=== PATIENT | female | born 1990 | race Caucasian/White ===

== ENCOUNTER 2025-02-06 06:45 | Day surgery (SDC) | payer MEDICAID ==
[~2025-02-06 06:45] MED LIST: SODIUM CHLORIDE 0.9% 1,000 ML ONE
[2025-02-06] MEDS ORDERED: FentaNYL CITRATE PF 100 MCG/2 ML VIAL ONE ×2 (07:30→07:31)
[2025-02-06] MEDS ORDERED: MIDAZOLAM HCL 2 MG/2 ML VIAL ONE (07:30)
[2025-02-06] MEDS: SODIUM CHLORIDE 0.9% 1,000 ML IV ONE (07:39)
[2025-02-06 09:45] VITALS: PULSE 73; RESP 18; O2SAT 99
[2025-02-06] MEDS: PROMETHAZINE HCL/DEXTROMETH 6.25-15MG/5ML SOLUTION ORAL.SYG PO ONE (11:04)
[2025-02-06] MEDS ORDERED: LIDOCAINE 2% 11 ML JELLY ONE (12:00)
[2025-02-06] MEDS ORDERED: LIDOCAINE 4% 50 ML SOLUTION ONE (12:00)
[2025-02-06] MEDS ORDERED: BENZOCAINE 20% 50 MCG/SPRAY 57 GM ONE (12:00)
[2025-02-06] MEDS ORDERED: ALBUTEROL SULFATE 2.5 MG/0.5 ML NEB SOLUTION NEB ONE (12:00)
== END 2025-02-06 12:45 | disposition home or self-care (01) ==
LOC: SURGERY 06:45
PROVIDERS: ATTEND Internal Medicine Critical Care Medicine
DX: J38.4 Edema of larynx (principal); B37.0 Candidal stomatitis; J47.9 Bronchiectasis, uncomplicated; R05.3 Chronic cough; R06.2 Wheezing; R04.2 Hemoptysis
CPT/HCPCS: 31623; 84703; 87206; 87101; 87220; 87070; 31624; 71045; 87015; J3010; J2250; J2919; J7030; 88108; J7613; Z7610